=== PATIENT | male | born 1935 | race Caucasian/White ===

== ENCOUNTER 2017-03-31 09:49 | Day surgery (SDC) | payer OTHER ==
[~2017-03-31 09:49] MED LIST: AMLO10 PO; ASPI325T24 PO; DOXA1 PO; FISH1200 PO; METF-324 PO; METF500 PO; VITA10002 PO; ZOCO40TA PO
[2017-03-31] MEDS ORDERED: MUPIROCIN 2% OINT 1 APPLIC/GM SYR NASAL SCH (10:30)
[2017-03-31] MEDS ORDERED: CHLORHEXIDINE GLUCONATE 2 % 1 PACK (2 CLOTHS) TOPICAL SCH (10:30)
[2017-03-31] MEDS ORDERED: ceFAZolin 2 GM PREMIX 50 ML IV SCH (10:30)
[2017-03-31] MEDS ORDERED: NS 1000 ML IV SCH (10:30)
[2017-03-31] MEDS ORDERED: POVIDONE IODINE 5% (ANTISEPSIS KIT) 4 APPLICATIONS EACH NARE SCH (10:30)
[2017-03-31] MEDS ORDERED: VITA100T15 PO (10:46)
[2017-03-31] MEDS ORDERED: SIMV20TA PO (10:46)
[2017-03-31] MEDS ORDERED: DOXA4TAB3 PO (10:46)
[2017-03-31] MEDS ORDERED: VITA100036 PO (10:46)
[2017-03-31] MEDS ORDERED: SITA50 PO (10:46)
[2017-03-31] MEDS ORDERED: METF1000 PO (10:46)
[2017-03-31] MEDS ORDERED: OMEG100010 PO (10:46)
[2017-03-31] MEDS ORDERED: OMEP20TA PO (10:46)
[2017-03-31] MEDS ORDERED: LISI2.5T3 PO (10:46)
[2017-03-31] MEDS ORDERED: ASPI325T PO (10:46)
[2017-03-31] MEDS ORDERED: MIDAZOLAM HCL 2 MG/2 ML VIAL ONE (11:36)
--- NOTE | 2017-03-31 12:23 | MA ---
cc: LEON MOROCHO MD, BETH A. MD DATE: 03/31/[address] Leon Morocho PREPROCEDURE DIAGNOSIS Multiple TIAs concerning for occult atrial fibrillation. POSTPROCEDURE DIAGNOSIS Successful loop recorder insertion. PROCEDURE PERFORMED 1. 15 minutes of moderate IV sedation. 2. Loop recorder insertion. DESCRIPTION OF PROCEDURE The patient was brought to the DOC unit in the postabsorptive state. After informed consent was obtained 2 mg Versed and 15 mcg of fentanyl was given for IV sedation. Next, a ID [employer] LINQ loop recorder was inserted subcutaneously to the left chest. The patient tolerated the procedure well without any apparent complications. Initial R-wave was 0.33 millivolts. Tachybrady pause and atrial fibrillation detection was enabled. The serial number was [id number]. Leon Morocho MD [place]/NANDINI /12:08 PM /12:16 PM
== END 2017-03-31 13:09 | disposition home or self-care (01) ==
LOC: HDOC 09:49 → HDIC 09:50 → HDOC 13:09
PROVIDERS: ATTEND Nuclear Medicine Nuclear Cardiology
DX: G45.9 Transient cerebral ischemic attack, unspecified (principal)
CPT/HCPCS: 33282; C1764; J0690; J2250; J3010

== ENCOUNTER 2017-08-22 09:39 | Day surgery (SDC) | payer OTHER ==
[2017-08-22] VITALS (7 sets, daily range): BP systolic 130–140; BP diastolic 82–90; PULSE 75–84; RESP 12–20; TEMP 97.4–97.9; O2SAT 97–99
[~2017-08-22] VITALS: Ht 182.9 cm; Wt 82.4 kg
[~2017-08-22 09:39] MED LIST changes: -AMLO10 PO; +ASPI325T PO; -ASPI325T24 PO; -DOXA1 PO; +DOXA4TAB3 PO; -FISH1200 PO; +LISI2.5T3 PO; -METF-324 PO; +METF1000 PO; -METF500 PO; +OMEG100010 PO; +OMEP20TA PO; +SIMV20TA PO; +SITA50 PO; -VITA10002 PO; +VITA100036 PO; +VITA100T15 PO; -ZOCO40TA PO
[2017-08-22] MEDS ORDERED: INSULIN HUMAN REGULAR 1,000 UNITS/10 ML VIAL SQ PRN (10:15)
[2017-08-22] MEDS ORDERED: LACTATED RINGER'S 1000 ML IV PRN (10:15)
[2017-08-22] MEDS ORDERED: SODIUM CHLORID 0.9% 500 ML IV PRN (10:15)
[2017-08-22] MEDS ORDERED: CHLORHEXIDINE GLUCONATE 2 % 1 PACK (2 CLOTHS) TOPICAL PRN (10:15)
[2017-08-22] MEDS ORDERED: SODIUM CHLORID 0.9% 500 ML INJ 500 ML IV SCH (10:15)
[2017-08-22] MEDS ORDERED: POVIDONE IODINE 5% (ANTISEPSIS KIT) 4 APPLICATIONS EACH NARE PRN (10:15)
[2017-08-22] MEDS ORDERED: LORazepam 1 MG TAB SL SCH (10:15)
[2017-08-22] MEDS ORDERED: METOPROLOL TARTRATE 25 MG TAB PO PRN (10:15)
[2017-08-22] MEDS ORDERED: APIX5TAB PO (10:24)
[2017-08-22 10:39] LABS: AUTOMATED NEUTROPHIL # 3.5 TH/MM3 (1.8-7.7); BASOPHIL % 0.7 % (0.0-2.0); EOSINOPHIL # 0.1 TH/MM3 (0-0.4); HEMATOCRIT 39.8 % (39.0-51.0); HEMO FLAGS DIFF FINAL; LYMPH % 37.5 % (9.0-44.0); LYMPHOCYTE # 2.5 TH/MM3 (1.0-4.8); MEAN CELL VOLUME 97.7 FL (80.0-100.0); MEAN CORPUSCULAR HGB CONC 34.8 % (32.0-36.0); MONO % 8.2 % (0.0-8.0); NEUT % 52.6 % (16.0-70.0); PLATELET COUNT 148 TH/MM3 (150-450); RED BLOOD COUNT 4.07 MIL/MM3 (4.50-5.90); RED CELL DISTRIBUTION WIDTH 13.1 % (11.6-17.2); WHITE BLOOD COUNT 6.6 TH/MM3 (4.0-11.0)
[2017-08-22 10:49] LABS: APTT (PATIENT) 26.9 SEC (24.3-30.1); PROTHROMBIN TIME - PATIENT 11.2 SEC (9.8-11.6)
[2017-08-22 11:05] LABS: BICARBONATE 22.2 MEQ/L (21.0-32.0); POTASSIUM 4.2 MEQ/L (3.5-5.1)
[2017-08-22] MEDS ORDERED: PHENYLEPHRINE HCL 10 MG/ML VIAL IV ONE (12:00)
[2017-08-22] MEDS ORDERED: LIDOCAINE HCL 1% PF 5 ML AMPULE OTHER ONE (12:00)
[2017-08-22] MEDS ORDERED: ePHEDrine/NS 25 MG/5 ML SYR IV ONE (12:00)
[2017-08-22] MEDS ORDERED: PROPOFOL 200 MG/20 ML AMP IV ONE (12:00)
[2017-08-22] MEDS ORDERED: ROCURONIUM INJ 50 MG/5 ML SYRINGE IV PUSH ONE (12:00)
[2017-08-22] MEDS ORDERED: PHENYLEPH/NS 1000 MCG/10 ML SYR IV ONE (12:00)
[2017-08-22] MEDS ORDERED: MIDAZOLAM HCL 2 MG/2 ML VIAL IV ONE (12:00)
[2017-08-22] MEDS ORDERED: HEPARIN-D5W 25,000 U/250 ML 250 ML ONE (13:36)
[2017-08-22] MEDS ORDERED: HEPARIN SODIUM - IV 10,000 UNITS/10 ML VIAL ONE ×2 (13:37→15:04)
[2017-08-22] MEDS ORDERED: ISOPROTERENOL HCL 1 MG/5 ML AMP ONE (13:37)
[2017-08-22] MEDS ORDERED: SODIUM CHLOR 0.9% 250 ML INJ 250 ML ONE (13:37)
[2017-08-22] MEDS ORDERED: HEPARIN-NS/PF INJ 2,000 ML ONE (13:39)
[2017-08-22] MEDS ORDERED: LEVOFLOXACIN 500 MG PREMIX INJ 100 ML IV ONE (13:41)
[2017-08-22] MEDS ORDERED: PROTAMINE SULFATE 50 MG/5 ML VIAL ONE (15:38)
[2017-08-22] MEDS ORDERED: FUROSEMIDE 40 MG/4 ML VIAL ONE (15:40)
[2017-08-22] MEDS ORDERED: LIDOCAINE HCL 1% 50 ML VIAL INFIL PRN (15:45)
[2017-08-22] MEDS ORDERED: BACITRACIN OINT 0.9 GM PKT TOP ONE (15:45)
[2017-08-22] MEDS ORDERED: ONDANSETRON HCL 4 MG/2 ML VIAL IV PUSH PRN (15:45)
[2017-08-22] MEDS ORDERED: LORazepam 2 MG/ML VIAL IV PUSH PRN (15:45)
[2017-08-22] MEDS ORDERED: oxyCODONE/ACETAMINOPHEN 5 MG/325 MG TAB PO PRN ×2 (15:45)
[2017-08-22] MEDS ORDERED: METOCLOPRAMIDE HCL 10 MG/2 ML VIAL IV PUSH PRN (15:45)
[2017-08-22] MEDS ORDERED: ATROPINE SULFATE 1 MG/ML VIAL IV PUSH PRN (15:45)
[2017-08-22] MEDS ORDERED: SODIUM CHLOR 0.9% 250 ML INJ 250 ML IV PRN (15:45)
--- NOTE | 2017-08-22 16:23 | CATHPROC ---
[employer] HIS Report Study Information Study Number Admission Scheduled Start Study Start [id number] Aug 22 2017 9:39AM 08/22/2017 Aug 22 2017 1:07PM [place] Service Electrophysiology Study Admit Source Facility Department Other [facility] - [employer] Physician and Clinical Staff Initial Divya De Leon Trackless Trolley Driver Corrina Zhu,SALESPERSON [place] [employer] [place] Trackless Trolley Driver Ebony De Leon,SALESPERSON [place] [employer] [place] TECH2 Other Anesthesia, MASTER PLANNER Recorder Corrina Zhu,SALESPERSON [place] [employer] [place] Recorder Maria Del Carmen Mccracken,Billy Boo RT(R) Procedures Performed Procedure Location (Site) Vessel Name Ablation Procedure ICE CATHETER INSERT RA Atruim RF Ablation LT. ATRIUM LT. ATRIUM Equipment Time Party Demonstrator Description Size Mfg Part Number Used/Scraped NEEDLE, TRANSSEPTAL NRG 98 13:41 [facility] [id number] Used C1 [employer]/ EP 13:41 KIT, TRANSDUCER / AFIB [id number] Used PACER [id number] CATHETER, TACTICATH ABLAT BUNDLE 13:41 BUNDLE-[employer] TREVOR Used 65 BUNDLE *[id number] BUNDLE [id number] CATHETER, FR7 OPTIMA SPIRAL 13:41 BUNDLE-[employer]REVOR FR7 *[id number] Used BUNDLE BUNDLE [id number] 13:41 BUNDLE-[employer]. [employer]REVOR CATHETER, JSN, QUAD BUNDLE FR 5 *[id number]- Used BUNDLE [id number] 13:41 BUNDLE-[employer]. TREVOR CATHETER, JSN, QUAD BUNDLE FR 5 *[id number]- Used BUNDLE [id number] SET, COOL POINT TUBING 13:41 BUNDLE-[employer] TREVOR *[id number]- Used BUNDLE BUNDLE SHEATH, FR8.5 STEERABLE SM 13:41 BUNDLE-[employer]. TREVOR 71CM [id number] Used 71CM BUNDLE COVER, TRANSDUCER CABLE 13:41 [employer] 612-113 Used ACUNAV 13:41 CORDIS/PACER SHEATH, FR10 KISHORE 11CM FR 10 [id number] Used 13:41 CORDIS/PACER SHEATH, FR9 KISHORE 11CM FR 9 [id number] Used [id number] 13:41 MED[employer] PACK, CCL CUSTOM * Used *[id number] 13:41 MEDLINE PACER MARCELINO, LIMB * 6120 *[id number] Used [id number] 13:41 [employer] MEDICAL SHEATH, FR4.5 PRELUDE 11CM FR 4.5 Used [id number] 13:41 NAMIC TUBING, HIGH PRESSURE 48" 48" Used *[id number] 13:41 NAMIC TUBING, HIGH PRESSURE 48" 48" Used *[id number] 13:41 [employer]ERS MEDICAL BLANKET,WARM AIR CCL * Used *[id number] 13:41 [facility] MEDICAL ELECTRODE KIT, KANDY X SURFACE * [id number] Used [id number] 13:41 [facility] [employer] MEDICAL SHEATH, EPS, FR6 FAST CATH FR 6 Used *[id number] 13:41 [facility] MEDICAL SHEATH, EPS, FR7 FAST CATH FR 7 [id number] Used [id number] 13:41 [employer] MEDICAL SHEATH, EPS, FR8 FAST CATH FR 8 Used *[id number] CATHETER, ACUNAV FR10 ICE [id number] 14:31 DELICIA FR 10 Used (DELICIA) *[id number] [facility] PAD, ELECTROSURGICAL 13:41 * [id number] *[id number] Used SURGICAL GROUNDING (BLUE) History: Allergies Allergy Reaction No Known Allergies History: Risk Factors Dyslipidemia Yes Labs Hgb (g/dl) Hct (%) RBC (MIL/MM3) WBC (l/cumm) Platelets (thousands) 11.60-17.00 35.00-51.00 4.00-5.90 4.00-11.00 150.00-450.00 13.0 39 4 6.6 148 Glucose (mg/dl) BUN (mg/dl) Creatinine (mg/dl) BUN:Creatinine (1:x) 74.00-106.00 7.00-18.00 0.50-1.30 10.00-20.00 150 14 1.1 12.7 Na (meq/l) K (meq/l) 136.00-145.00 3.50-5.10 137 4.2 INR (PTT:PT) 0.90-1.10 1 Medication Medication Total Dose (Bolus/Oral) Medication Total Dosage/Unit 1% XYLOCAINE 40 mL HEPARIN 50771 units PROTAMINE 50 mg Medications (Bolus/Oral) Medication Time Given Dosage/Unit Administered By Reason 1% XYLOCAINE 08/22/2017 2:20:49 PM 20 mL Divya Garner 20 mL 1% XYLOCAINE given in lab by Divya Garner in Left Groin via Subcutaneous. 1% XYLOCAINE 08/22/2017 2:25:25 PM 20 mL iDvya Garner 20 mL 1% XYLOCAINE given in lab by Divya Garner in Right Groin via Subcutaneous. HEPARIN 08/22/2017 2:32:05 PM 53994 units Anesthesia, MASTER PLANNER As per physicians v erbal order 16273 units HEPARIN given in lab by Anesthesia, MASTER PLANNER via Peripheral IV. Ordered by Divya Garner. Anamika son: As per physicians verbal order. HEPARIN 08/22/2017 3:03:51 PM 2000 units Anesthesia, MASTER PLANNER As per physicians ve rbal order 2000 units HEPARIN given in lab by Anesthesia, MASTER PLANNER via Peripheral IV. Ordered by Divya Garner. Reas on: As per physicians verbal order. PROTAMINE 08/22/2017 3:38:56 PM 50 mg Anesthesia, MASTER PLANNER As per physicians luz maria bal order 50 mg PROTAMINE given in lab by Anesthesia, MASTER PLANNER via Peripheral IV. Ordered by Divya Garner. Reason: As per physicians verbal order. Medication (Drip) Medication Time Given Dosage/Unit Concentration/Unit Diluent (ml) Solution HEPARIN DRIP 08/22/2017 2:49:54 PM 1000 units/hr 47369 units 250 D5W 1000 units/hr HEPARIN DRIP given in lab by Anesthesia, MASTER PLANNER via Peripheral IV. Pump/Drip Flow = 10 ml /hr [place] [address] units in 250 ml. Ordered by Divya Garner. Reason: As per physicians verbal order. ISUPREL 08/22/2017 3:26:36 PM 20 mcg/min 1 mg 250 NaCl .9 20 mcg/min ISUPREL given in lab by Anesthesia, MASTER PLANNER via Peripheral IV. Pump/Drip Flow = 300 ml/hr usi ng NaCl .9 with a concentration of 1 mg in 250 ml. Ordered by Divya Garner. Reason: As per physicians verbal order. LEVAQUIN 08/22/2017 1:56:30 PM 100 mL/hr 500 100 NaCl .9 100 mL/hr LEVAQUIN given in lab by Anesthesia, MASTER PLANNER via Peripheral IV. Pump/Drip Flow = 0 ml/hr using NaCl .9 with a concentration of 500 in 100 ml. Ordered by Divya Garner. Reason: As per physicians verbal order. Final Case Assessment Cardiovascular HR Rhythm NIBP Chest Pain 95 sr 120/71 0 Edema Present Skin color Skin None Normal Warm Dry Circulatory - Right Pulses Dorsalis Pedis 3 Scale (0,1,2,3,4,d) Circulatory - Left Pulses Dorsalis Pedis 3 Scale (0,1,2,3,4,d) Circulatory - Lower Extremities Color Lower Right Color Lower Left Normal Normal Neurological State Oriented to time-place- Alert Moves all extremities person Respiration - General Respiration Rate SpO2 (%) O2 (lpm) (B/min) 16 100 4 Chronological Log Time Study Chronological Log 13:40:51 Patient arrived via Bed. 13:40:59 Patient Name, D.O.B, / Armband Verified By R.N. 13:41:20 Pre-op and post- op instructions given; patient acknowledges understanding of instructions . 13:41:57 Consent signed by the physician and the patient and verified by the [employer] staff. 13:42:08 Verbal Stimulation=2 Physical Stimulation=2 Airway=2 Respiration=2 TOTAL=8. (0=absent, 1=l imited, 2=present) 13:42:21 Anesthesia at bedside. Assumes care of patient. 13:42:26 Patient has been NPO for More than 6Hrs. 13:42:30 Skin Breakdown- 13:43:00 Patient Warmer Placed on the Table. 13:44:00 Disposable Defibrillator Pads Placed On Patient. 13:44:41 Daljit Prominences Protected 13:45:45 A # 20 IV was noted in the Forearm (left). Grade = 0 0.9ns kvo 13:45:46 A # 20 IV was noted in the Hand (right). Grade = 0 0.9ns kvo 13:46:58 History and physical on the chart or being dictated. 13:54:14 Table restraints applied according to hospital policy 100 mL/hr LEVAQUIN given in lab by Anesthesia, MASTER PLANNER via Peripheral IV. Pump/Drip Flow = 0 ml/hr using NaCl .9 with 13:56:30 a concentration of 500 in 100 ml. Ordered by Divya Garner. Reason: As per physicians verbal or alva. 13:59:18 Glue Jointer Feeder present for intubation. 14 fr holcomb inserted w/o difficulty. Clear yellow urine obtained. 14:11:15 Bilateral groins prepped with 2% chlorhexidine, and draped after a 3 minute waiting time. 14:12:48 MD paged 14:14:53 MD arrived. Time Out. Correct patient, procedure, procedure equipment, site and side verified with physicia n present. Time 14:17:00 concurred by MD, individual staff and MASTER PLANNER. Time Out #2 - Consents verified, patient in correct position, all results are labled and displa yed, safety precautions 14:17:20 taken, antibiotics administered. Time out concurred by MD, individual staff and MASTER PLANNER in procedu re 14:17:40 Case Start 14:17:42 Александр in progress 14:20:04 Reference ECG taken 14:20:10 Александр complete 14:20:49 20 mL 1% XYLOCAINE given in lab by Divya Garner in Left Groin via Subcutaneous. 14:21:56 Vascular access was obtained in the Fem Vein (left). 14:22:00 Vascular access was obtained in the Fem Vein (left). 14:22:04 Vascular access was obtained in the Fem Vein (left). 14:22:12 Vascular access was obtained in the Fem Art (left). A SHEATH, FR4.5 PRELUDE 11CM FR 4.5 was advanced into the Fem Art (left) using the Modified Latha kike technique. 14:22:26 0.9ns pressure bag connected for bp monitoring. 14:23:23 A SHEATH, EPS, FR6 FAST CATH FR 6 was advanced into the Fem Vein (left) using the Modified Seldinger technique. 14:23:33 A SHEATH, EPS, FR7 FAST CATH FR 7 was advanced into the Fem Vein (left) using the Modified Seldinger technique. 14:23:41 A SHEATH, FR10 KISHORE 11CM FR 10 was advanced into the Fem Vein (left) using the Modified S eldinger technique. 14:25:25 20 mL 1% XYLOCAINE given in lab by Divya Garner in Right Groin via Subcutaneous. 14:25:32 A SHEATH, EPS, FR8 FAST CATH FR 8 was advanced into the Fem Vein (right) using the Modified Seldinger technique. A CATHETER, JSN, QUAD BUNDLE FR 5 was advanced vis Fem Vein (left) and placed in the CS. Placem ent was visually 14:25:55 confirmed under fluoroscopy. A CATHETER, JSN, QUAD BUNDLE FR 5 was advanced vis Fem Vein (left) and placed in the HIS. Place ment was 14:26:23 visually confirmed under fluoroscopy. 14:30:31 CATHETER, ACUNAV FR10 ICE (DELICIA) FR 10 Was Postioned. A SHEATH, FR8.5 STEERABLE SM 71CM BUNDLE 71CM was exchanged in the Fem Vein (right). This was n ecessary in 14:30:40 order for catheter support. 14:31:55 [place] [address] units HEPARIN given in lab by Anesthesia, MASTER PLANNER via Peripheral IV. Ordered by Pablo Garner Reason: As per 14:32:05 physicians verbal order. 14:39:06 A eps was advanced to the right atrium and passed through the septal wall to the left atriu m. 14:39:09 [place] out A CATHETER, FR7 OPTIMA SPIRAL BUNDLE FR7 was advanced vis Fem Vein (right) and placed in the LA . Placement 14:39:19 was visually confirmed under fluoroscopy. Mapping in progress. 14:41:23 Activated Clotting Time Drawn 14:48:41 ACT (Normal Range 90-180) = 367 1000 units/hr HEPARIN DRIP given in lab by Anesthesia, MASTER PLANNER via Peripheral IV. Pump/Drip Flow = 10 ml/hr using 14:49:54 D5[place] [address] units in 250 ml. Ordered by Divya Garner. Reason: As per marianne gonzales verbal order. 14:51:00 Mapping complete. Catheter was removed A CATHETER, TACTICATH ABLAT 65 BUNDLE was advanced vis Fem Vein (right) and placed in the LA. P lacement was 14:51:50 visually confirmed under fluoroscopy. 14:52:38 RF Ablation of the LT. ATRIUM with a CATHETER, TACTICATH ABLAT 65 BUNDLE. 14:58:18 Activated Clotting Time Drawn 15:03:39 ACT (Normal Range 90-180) = 333 2000 units HEPARIN given in lab by Anesthesia, MASTER PLANNER via Peripheral IV. Ordered by Divya Garner . Reason: As per 15:03:51 physicians verbal order. 15:12:00 Activated Clotting Time Drawn 15:16:22 Activated Clotting Time redrawn 15:22:56 Ablation Catheter was removed 15:23:17 ACT (Normal Range 90-180) = 383 A CATHETER, FR7 OPTIMA SPIRAL BUNDLE FR7 was advanced vis Fem Vein (right) and placed in the LA . Placement 15:23:37 was visually confirmed under fluoroscopy. 20 mcg/min ISUPREL given in lab by Anesthesia, MASTER PLANNER via Peripheral IV. Pump/Drip Flow = 300 ml/ hr using NaCl .9 15:26:36 with a concentration of 1 mg in 250 ml. Ordered by Divya Garner. Reason: As per physicians luz maria bal order. 15:29:27 Isuprel off. 15:35:26 Quad Catheter(s) removed without difficulty 15:38:18 MD unable to advance 0.032 wire for right fem vein sheath exchange to fr 9. 15:38:18 Heparin gtt off. 50 mg PROTAMINE given in lab by Anesthesia, MASTER PLANNER via Peripheral IV. Ordered by Divya Garner. R ratna: As per 15:38:56 physicians verbal order. 15:51:30 Activated Clotting Time Drawn 15:53:35 ACT (Normal Range 90-180) = 146 15:55:00 Left fem arterial sheath removed; pressure applied to access site by DC. 15:55:23 Right fem vein sheath removed; pressure applied to access site by DB. 16:06:51 Left fem vein sheaths removed; pressure applied to access sites by DC. 16:06:53 Ablation procedure performed: AFIB. 16:06:59 EP Procedure was performed. 16:10:52 PACU called. Spoke to Fabrice 16:11:26 Bedside Report will be given. 16:11:44 Sterile dressing applied to right groin site. Site WNL. 16:15:50 Case End Assessment: Final Case, HR=95 BPM, Rhythm=sr, JDEA=325/71 mmhg, Chest Pain=0, Edema=None, Termo r=Normal, Skin = Warm, Dry Right Pulses: Santosh Ped=3 Left Pulses: Santosh Ped=3 16:20:23 Lower Right Extremities: Color=Normal Lower Left Extremities: Color=Normal Neurological: State=Alert, Ox3, WOO Respiration: Resp=16 B/min, CmO2=493 %, O2=4 lpm 16:21:21 No case complications noted. 16:26:25 Sterile dressing applied to left fem site. Site wnl. 16:32:40 Patient moved to stretcher End Study - Contrast Media Used In Study Contrast Total Opened (mL) Total Used (mL) Total Wasted (mL) Unspecified 0 0 0 End Study - Maximum Contrast Load Max Contrast Load (mL) 381.4 End Study - Radiation Exposure Fluoro Time (minutes) 4.1 End Study - Patient Disposition Complications Transferred To Interventional Outcome No Telemetry Bed successful
[2017-08-22] MEDS ORDERED: DO NOT ADM ANY ANTICOAGULANT DRUGS PRN (17:30)
[2017-08-22] MEDS: APIXABAN 5 MG TABLET PO SCH (21:10)
--- NOTE | 2017-08-22 21:37 | EKG ---
Date Performed: 08/22/2017 Time Performed: 10:27:20 PTAGE: 82 years EKG: Sinus rhythm . Left axis deviation Poor R wave progression - probable normal variant Borderline ECG PREVIOUS TRACING : 07/26/2016 06.51 Compared to prior tracing no significant change DOCTOR: Casimiro Schaefer Interpretating Date/Time 08/22/2017 21:36:09
[2017-08-23] VITALS (9 sets, daily range): BP systolic 110–142; BP diastolic 66–77; PULSE 77–120; RESP 14–17; TEMP 97.9; O2SAT 96
[2017-08-23 06:47] LABS: APTT (PATIENT) 26.2 SEC (24.3-30.1); INTERNATIONAL NORMALIZED RATIO 1.1 RATIO
--- NOTE | 2017-08-23 08:26 | PD.CARD ---
Atrial Fibrillation Ablation PROCEDURE DATE: Aug 22, 2017 PROCEDURES PERFORMED: 1. Electrophysiology study on Isuprel infusion 2. CS cannulation 3. 3-D mapping 4. Transseptal approach 5. Right and left heart catheterization 6. Intracardiac echo 7. Radiofrequency ablation of atrial fibrillation 8. Pulmonary vein isolation 9. Posterior wall ablation 10. Mitral line creation 11. Anterior wall ablation INDICATIONS FOR THE PROCEDURE Mr. Caraballo is a 82-year-old male with atrial fibrillation, symptomatic despite medication, normal EF, on anticoagulation referred for electrophysiology study and ablation. The risks, the nature and the benefits of the procedure were clearly stated to him. The risks include pneumothorax, cardiac perforation, stroke, need for open heart surgery and even . The patient understood and agreed to proceed. DESCRIPTION OF THE PROCEDURE IN DETAIL As written informed consent was obtained prior to esophageal echocardiogram, the patient was kept on the table where he was prepped and draped in the usual sterile fashion. Conscious sedation was initiated and maintained throughout the procedure by the anesthesiologist. Once sedation was verified, the right and left inguinal areas were anesthetized with 2% Xylocaine. Using modified Seldinger technique, the left femoral vein was cannulated on three occasions, three guidewires were advanced. Over the wire a 6, 7 and a 10-Mauritanian Hemaquet were advanced. Then the left femoral artery was cannulated on one occasion, one guidewire was advanced. Over the wire a 4-Mauritanian Hemaquet was advanced. Then the right femoral vein was cannulated on one occasion, one guidewire was advanced. Over the wire a 8-Mauritanian Hemaquet was advanced. Then under fluoroscopic guidance through the 6 and 7-Mauritanian Hemaquet, two 5-Mauritanian Yehuda curved quadripolar electrophysiology catheters were advanced and placed around the His as well as coronary sinus. Basic interval was measured. The patient was in sinus rhythm. Through the 10-Mauritanian Hemaquet, a Cordis Garrett AcuNav intracardiac echo catheter was advanced and placed at the right atrium. Multiple view was obtained. There is pericardial effusion, pulmonary vein was seen, atrial septal was visualized. Then the 8-Mauritanian Hemaquet in the right femoral vein was exchanged for Agilis transseptal sheath that was placed all the way to the superior vena cava. Through the sheath a Min needle was advanced, then the sheath, the dilator and the needle were progressed until foci engaged. Once engaged, the needle was advanced. RF was delivered for 2 seconds. I was able to cross into the left atrium. Once the needle crossed, the dilator was advanced. Once the dilator crossed, the sheath was advanced. Once the sheath crossed, the dilator and the needle were removed. At this point I did flood the system and fluid movement was seen in the left atrium the indicates the sheath is in good position. The patient already received 10,000 units of heparin. The goal is to keep an ACT around 350 during ablation. Then through the sheath a [place] 20 pulse circumferential catheter was advanced. Using CNZZ endocardial solution mapping system, a two-dimensional configuration of the left atrium was obtained. Points were taken at the left superior and inferior veins, right superior and inferior veins, mitral valve, and appendages. Then through the sheath a [place]. [place] TactiCath 65cm 3.5mm irrigated tipped mapping and radiofrequency ablation catheter was advanced. Esophageal probe was placed temperature monitoring during ablation. When it increased to 0.5 degrees Celsius above baseline, I moved to a different area of the atrium. First I did isolate the left superior and inferior vein. I did make a quinault around the veins. Posterior was ablated. A mitral line was created. Then the right superior and inferior veins were isolated. I did remap the atrium. I did advance the circumferential catheter again into the vein. There was no signal into the vein, pacing from the vein showed no conduction to the atrium. Isuprel infusion was initiated at 20 mcg for over 10 minutes. No tachyarrhythmia was induced, post Isuprel no tachyarrhythmia was induced. At that point the procedure was complete. All catheters were removed, atrial septal sheath was exchanged for 9-Mauritanian Hemaquet, intracardiac echo showed no pericardial effusion. There is still good flow in the pulmonary vein. The patient is going to be transferred to the recovery room. No incident report. The patient tolerated the procedure. Blood loss was minimal. FINDINGS 1. Electrocardiogram: At baseline the patient was in sinus rhythm. Post procedure electrocardiogram was unchanged. 2. Basic interval: Base cycle length was around 850. AH at 90 and HV at 46 milliseconds. 3. Tachyarrhythmia: Atrial fibrillation was mapped and ablated. The ablation was successful. CONCLUSION Successful electrophysiology study, mapping, radiofrequency ablation of atrial fibrillation, left atrial tachycardia, pulmonary vein isolation, posterior ablation, mitral line creation. COMMENTS AND RECOMMENDATIONS The patient is going to be transferred to the telemetry unit. Will be observed and when stable can be discharged home. Divya Garner MD Aug 23, 2017 08:26
--- NOTE | 2017-08-23 08:28 | PD.CARD.PN ---
Subjective Subjective Remarks Feels okay Objective Medications Current Medications Medications (Trade) Dose Ordered Sig/Tania Route Start Time Stop Time Status Last Admin Sodium Chloride 500 ml @ 30 mls/hr [id number] IV 08/22/17 10:15 (Ativan) 1 mg FOOD SAFETY DIRECTOR SL 08/22/17 10:15 08/25/17 10:14 Lactated Ringer's 1,000 ml @ 30 mls/hr Q24H PRN IV 08/22/17 10:15 08/25/17 10:14 Sodium Chloride 500 ml @ 30 mls/hr [id number] PRN IV 08/22/17 10:15 08/25/17 10:14 (Lopressor) 25 mg FOOD SAFETY DIRECTOR PRN PO 08/22/17 10:15 08/25/17 10:14 (Betadine 5% Antisepsis Kit) 1 applic FOOD SAFETY DIRECTOR PRN EACH NARE 08/22/17 10:15 08/25/17 10:14 (Chlorhexidine 2% Cloth) 3 pack FOOD SAFETY DIRECTOR PRN TOPICAL 08/22/17 10:15 08/25/17 10:14 (NovoLIN R INJ) See Protocol Table ... FOOD SAFETY DIRECTOR PRN SQ 08/22/17 10:15 08/25/17 10:14 (Percocet 5-325 Mg) 1 tab Q4H PRN PO 08/22/17 15:45 (Percocet 5-325 Mg) 2 tab Q4H PRN PO 08/22/17 15:45 (Ativan Inj) 0.5 mg UNSCH PRN IV PUSH 08/22/17 15:45 08/23/17 15:44 (Atropine Inj) 0.5 mg UNSCH PRN IV PUSH 08/22/17 15:45 Sodium Chloride 250 ml @ 500 mls/hr ONCE PRN IV 08/22/17 15:45 08/23/17 15:44 (Reglan Inj) 10 mg Q4H PRN IV PUSH 08/22/17 15:45 UNV (Zofran Inj) 4 mg Q4H PRN IV PUSH 08/22/17 15:45 (Xylocaine 1% Inj (50 ml)) 10 ml UNSCH PRN INFIL 08/22/17 15:45 08/23/17 15:44 (Eliquis) 5 mg BID PO 08/22/17 21:00 08/22/17 21:10 (Vitamin D3) 2,000 units DAILY PO 08/23/17 09:00 (Cardura) 4 mg DAILY PO 08/23/17 09:00 (Glucophage) 2,500 mg DAILY PO 08/23/17 09:00 UNV (Januvia) 50 mg DAILY PO 08/23/17 09:00 (Protonix) 20 mg DAILY PO 08/23/17 09:00 (Pravachol) 40 mg DAILY PO 08/23/17 09:00 Miscellaneous Information [facility]PART[facility] .XX 08/22/17 17:30 08/23/17 17:29 Vital Signs / I&O Vital Signs Date Time Temp Pulse Resp B/P (MAP) Pulse Ox O2 Delivery O2 Flow Rate FiO2 08/23/17 06:00 88 08/23/17 05:00 90 08/23/17 04:00 88 08/23/17 03:00 97.9 95 14 110/66 (81) 96 08/23/17 03:00 92 08/23/17 02:00 90 08/23/17 01:00 86 08/23/17 00:00 120 08/22/17 23:00 84 08/22/17 23:00 97.4 83 16 130/82 (98) 98 08/22/17 22:00 82 08/22/17 21:00 84 08/22/17 20:00 78 08/22/17 19:00 75 12 140/90 (107) 99 08/22/17 19:00 76 08/22/17 18:35 97.5 76 20 130/83 (99) 98 08/22/17 18:35 97.5 76 20 130/83 (99) 98 08/22/17 18:10 87 16 148/74 (98) 99 Nasal Cannula 2 08/22/17 18:00 76 16 144/70 (94) 99 Nasal Cannula 2 08/22/17 17:45 76 16 114/67 (83) 99 Nasal Cannula 2 08/22/17 17:30 77 16 119/67 (84) 99 Nasal Cannula 2 08/22/17 17:15 80 16 113/63 (80) 99 Nasal Cannula 2 08/22/17 17:00 86 16 139/89 (106) 99 Nasal Cannula 2 08/22/17 16:45 89 16 129/74 (92) 97 Nasal Cannula 2 08/22/17 16:38 97.8 89 16 119/78 (92) 97 Nasal Cannula 2 08/22/17 10:14 97.9 76 18 131/85 (100) 97 I/O 08/22/17 08/22/17 08/22/17 08/23/17 08/23/17 08/23/17 07:00 15:00 23:00 07:00 15:00 23:00 Intake Total 240 ml Output Total 1400 ml Balance -1160 ml Intake Oral 240 ml Output Urine Total 1400 ml Physical Exam GENERAL: Well-nourished, well-developed patient. SKIN: Warm and dry. Groin sites soft without bruising or bleeding. HEAD: Normocephalic. EYES: No scleral icterus. No injection or drainage. NECK: Supple, trachea midline. No JVD or lymphadenopathy. CARDIOVASCULAR: Regular rate and rhythm without murmurs, gallops, or rubs. RESPIRATORY: Breath sounds equal bilaterally. No accessory muscle use. GASTROINTESTINAL: Abdomen soft, non-tender, nondistended. EXTREMITIES: No cyanosis, or edema. NEUROLOGICAL: Awake, alert, and oriented x 3. Non-focal. Laboratory Laboratory Tests Test 08/22/17 10:20 08/23/17 05:54 White Blood Count 6.6 TH/MM3 Red Blood Count 4.07 MIL/MM3 Hemoglobin 13.9 GM/DL Hematocrit 39.8 % Mean Corpuscular Volume 97.7 FL Mean Corpuscular Hemoglobin 34.0 PG Mean Corpuscular Hemoglobin Concent 34.8 % Red Cell Distribution Width 13.1 % Platelet Count 148 TH/MM3 Mean Platelet Volume 9.9 FL Neutrophils (%) (Auto) 52.6 % Lymphocytes (%) (Auto) 37.5 % Monocytes (%) (Auto) 8.2 % Eosinophils (%) (Auto) 1.0 % Basophils (%) (Auto) 0.7 % Neutrophils # (Auto) 3.5 TH/MM3 Lymphocytes # (Auto) 2.5 TH/MM3 Monocytes # (Auto) 0.5 TH/MM3 Eosinophils # (Auto) 0.1 TH/MM3 Basophils # (Auto) 0.0 TH/MM3 CBC Comment DIFF FINAL Differential Comment Prothrombin Time 11.2 SEC 12.0 SEC Prothromb Time International Ratio 1.0 RATIO 1.1 RATIO Activated Partial Thromboplast Time 26.9 SEC 26.2 SEC Blood Urea Nitrogen 14 MG/DL Creatinine 1.15 MG/DL Random Glucose 150 MG/DL Calcium Level 9.4 MG/DL Sodium Level 137 MEQ/L Potassium Level 4.2 MEQ/L Chloride Level 103 MEQ/L Carbon Dioxide Level 22.2 MEQ/L Anion Gap 12 MEQ/L Estimat Glomerular Filtration Rate 61 ML/MIN Assessment and Plan Problem List: (1) Atrial fibrillation ICD Codes: I48.91 - Unspecified atrial fibrillation Plan: Stable, sinus rhythm, status post ablation of atrial fibrillation. (2) S/P ablation of atrial fibrillation ICD Codes: Z98.890 - Other specified postprocedural states; Z86.79 - Personal history of other diseases of the circulatory system Plan: Discharge home, follow-up with Dr. Garner in 3 weeks per my discussion with him. Continue eliquis. Problem Qualifiers (1) Atrial fibrillation: Qualified Codes: I48.0 - Paroxysmal atrial fibrillation Sirena Saenz Aug 23, 2017 08:28
[2017-08-23] MEDS: APIXABAN 5 MG TABLET PO SCH (08:53)
[2017-08-23] MEDS ORDERED: CHOLECALCIFEROL (VIT D3) 1000 UNIT TAB PO SCH (09:00)
[2017-08-23] MEDS ORDERED: PRAVASTATIN SOD 40 MG TAB PO SCH (09:00)
[2017-08-23] MEDS ORDERED: PANTOPRAZOLE SOD 20 MG DELAYED RELEASE TAB PO SCH (09:00)
[2017-08-23] MEDS ORDERED: DOXAZOSIN MESYLATE 4 MG TAB PO SCH (09:00)
[2017-08-23] MEDS ORDERED: metFORMIN HCL 500 MG TAB PO SCH (09:00)
--- NOTE | 2017-08-23 13:50 | EKG ---
Date Performed: 08/23/2017 Time Performed: 04:21:54 PTAGE: 82 years EKG: Sinus rhythm Left axis deviation Poor R wave progression - probable normal variant Borderline ECG PREVIOUS TRACING : 08/22/2017 16.54 DOCTOR: Royer [place] Interpretating Date/Time 08/23/2017 13:44:13
--- NOTE | 2017-08-23 14:15 | EKG ---
Date Performed: 08/22/2017 Time Performed: 16:54:40 PTAGE: 82 years EKG: Sinus rhythm MARKED LEFT AXIS DEVIATION ABNORMAL ECG PREVIOUS TRACING : 08/22/2017 10.27 DOCTOR: Royer Montana Interpretating Date/Time 08/23/2017 14:13:20
== END 2017-08-23 09:20 | disposition home or self-care (01) ==
LOC: HDOC 09:39 → HDIC 09:40 → HCIN 18:33 → HDOC 08-23 09:20
PROVIDERS: ATTEND Internal Medicine Interventional Cardiology
DX: I48.2 Chronic atrial fibrillation (principal); I47.1 Supraventricular tachycardia; I31.3 Pericardial effusion (noninflammatory); I65.23 Occlusion and stenosis of bilateral carotid arteries; I08.1 Rheumatic disorders of both mitral and tricuspid valves; E11.22 Type 2 diabetes mellitus with diabetic chronic kidney disease; N18.2 Chronic kidney disease, stage 2 (mild); Z79.84 Long term (current) use of oral hypoglycemic drugs; Z79.01 Long term (current) use of anticoagulants; Z86.73 Personal history of transient ischemic attack (TIA), and cerebral infarction without residual deficits
CPT/HCPCS: 80048; 85002; 85025; 85610; 85730; 86850; 86900; 86901; 93005; 93312; 93320; 93325; 93613; 93623; 93656; 93662; C1730; C1731; C1732; C1759; C1766; C2630; J1644; J1940; J1956; J2250; J2370; J2720; J3010; J7050